=== PATIENT | male | born 1985 | race Caucasian/White ===

== ENCOUNTER 2023-01-28 09:52 | Emergency (ER) | payer OTHER, SELFPAY ==
[~2023-01-28] VITALS: Ht 182.9 cm; Wt 81.4 kg
[2023-01-28] MEDS ORDERED: BOOSTRIX VACCINE (TETANUS/DIPHTH/ACEL. PERTUSSIS) 0.5ML SYR IM ONE (11:15)
[2023-01-28] MEDS ORDERED: LIDOCAINE 2% MDV 20ML VIAL SC ONE (11:55)
[2023-01-28] MEDS ORDERED: BACITRACIN OINTMENT 30GM TUBE TOP STA (12:12)
[2023-01-28 12:18] VITALS: BP 152/89; TEMP 97.1; O2SAT 99
== END 2023-01-28 12:30 | disposition home or self-care (01) ==
LOC: M ED 09:52
DX: S66.320A Laceration of extensor muscle, fascia and tendon of right index finger at wrist and hand level, initial encounter (principal); F17.200 Nicotine dependence, unspecified, uncomplicated; F10.10 Alcohol abuse, uncomplicated; Y92.9 Unspecified place or not applicable; Y93.9 Activity, unspecified; Y99.0 Civilian activity done for income or pay